=== PATIENT | male | born 2000 | race Caucasian/White ===

== ENCOUNTER 2021-09-29 02:31 | Emergency (ER) | payer SELFPAY ==
[~2021-09-29] VITALS: Ht 180.3 cm; Wt 109.0 kg
[2021-09-29] MEDS ORDERED: ONDANSETRON HCL 4MG/2ML INJ IV STA (02:48)
[2021-09-29] MEDS ORDERED: SODIUM CHLORIDE 0.9% 1,000 ML IV ONE (03:00)
[2021-09-29 04:40] LABS: BASOPHILS % 0.6 % (0.0-2.0); EOSINOPHILS % 1.3 % (0.0-5.0); HEMATOCRIT. 41.3 % (42.0-52.0); HEMOGLOBIN. 13.7 g/dL (14.0-18.0); LYMPHOCYTES % 19.6 % (20.0-50.0); MEAN CORPUSCULAR HEMOGLOBIN 27.2 pg (28.0-32.0); MEAN CORPUSCULAR VOLUME 82.1 fL (80.0-94.0); MEAN PLATELET VOLUME 7.8 fl (7.4-10.4); MONOCYTES % 4.2 % (2.0-8.0); NEUTROPHILS % 74.3 % (40.0-76.0); PLATELET 344 x1000/uL (130-400); RED BLOOD CELL COUNT 5.03 mill/uL (4.7-6.1); RED CELL DISTRIBUTION WIDTH 14.2 % (11.6-14.6)
[2021-09-29 04:45] LABS: CHLORIDE 103 mEq/L (98-107); CLARITY URINE CLEAR (CLEAR); COLOR URINE YELLOW (YELLOW); KETONES URINE TRACE (NEGATIVE); LEUKOCYTE ESTERASE URINE NEGATIVE (NEGATIVE); NITRITE URINE NEGATIVE (NEGATIVE); OCCULT BLOOD URINE NEGATIVE (NEGATIVE); PH URINE 5.5 (4.5-8.0); PROTEIN URINE TRACE (NEGATIVE); SPECIFIC GRAVITY URINE 1.025 (1.005-1.030); UROBILINOGEN URINE 0.2 E.U./dL (0.2-1.0)
[2021-09-29 06:01] VITALS: BP 118/65
[2021-09-29 15:31] LABS: *AMPHETAMINES SCREEN URINE NEGATIVE (NEGATIVE); *BARBITURATES SCREEN URINE NEGATIVE (NEGATIVE); *BENZODIAZEPINES SCREEN URINE NEGATIVE (NEGATIVE); *COCAINE SCREEN URINE PRESUMTIVE POSITIVE (NEGATIVE)
[2021-09-29 15:33] LABS: CANNABINOID URINE SCREEN PRESUMTIVE POSITIVE (NEGATIVE); OPIATES URINE SCREEN NEGATIVE (NEGATIVE); PHENCYCLIDINE URINE SCREEN NEGATIVE (NEGATIVE)
[2021-09-29 15:38] LABS: METHADONE URINE SCREEN NEGATIVE (NEGATIVE)
== END 2021-09-29 06:40 | disposition home or self-care (01) ==
LOC: ER 02:31
DX: R11.2 Nausea with vomiting, unspecified (principal); F14.10 Cocaine abuse, uncomplicated; T68.XXXA Hypothermia, initial encounter
CPT/HCPCS: 36415; 71045; 80053; 80305; 81003; 83605; 83690; 85025; 96374; 99285; J2405; Z7610